=== PATIENT | male | born 1980 | race Caucasian/White ===

== ENCOUNTER 2016-10-07 09:35 | Day surgery (SDC) | payer BC ==
[~2016-10-07] VITALS: Ht 188 cm; Wt 107.2 kg
[2016-10-07 10:13] VITALS: BP 132/81; PULSE 77; TEMP 98.3
[2016-10-07 11:15] VITALS: BP 137/83; PULSE 76; TEMP 97.5
[2016-10-07 11:30] VITALS: BP 151/84; PULSE 84
[2016-10-07 11:45] VITALS: BP 151/92; PULSE 89
== END 2016-10-07 12:10 | disposition home or self-care (01) ==
LOC: SDCO 09:35
DX: J40 Bronchitis, not specified as acute or chronic (principal); R05 Cough; Z87.891 Personal history of nicotine dependence
CPT/HCPCS: J2704

== ENCOUNTER 2017-04-18 10:13 | Day surgery (SDC) | payer BC ==
[~2017-04-18] VITALS: Ht 188 cm; Wt 111.0 kg
[2017-04-18 10:42] VITALS: BP 142/99; PULSE 81
[2017-04-18] MEDS ORDERED: PRIL40 PO (10:45)
[2017-04-18 12:05] VITALS: BP 123/79; PULSE 82
[2017-04-18 12:20] VITALS: BP 128/103; PULSE 91
[2017-04-18] MEDS ORDERED: IMODIUM 2MG CAPS2 MG PO (12:32)
[2017-04-18 12:35] VITALS: BP 141/94; PULSE 77
[2017-04-18 16:21] VITALS: BP 132/77; PULSE 71
== END 2017-04-18 12:45 | disposition home or self-care (01) ==
LOC: SDCO 10:13
DX: K62.1 Rectal polyp (principal); R19.7 Diarrhea, unspecified; K21.9 Gastro-esophageal reflux disease without esophagitis; K30 Functional dyspepsia; E66.9 Obesity, unspecified; Z87.891 Personal history of nicotine dependence
CPT/HCPCS: J2250; J3010; J7030

== ENCOUNTER → 2017-05-01 | Outpatient (CLI) | payer BC ==
[~2017-05-01] MED LIST: IMODIUM 2MG CAPS2 MG PO; PRIL40 PO
== END ==
LOC: COL.RAD 16:20
DX: Z01.89 Encounter for other specified special examinations (principal)

== ENCOUNTER → 2017-05-07 | Outpatient (CLI) | payer BC | LOC: COL.RAD 11:05 | DX: R16.1 Splenomegaly, not elsewhere classified (principal) ==

== ENCOUNTER → 2021-09-10 | Outpatient (CLI) | payer BC | LOC: COL.RAD 14:22 | DX: K76.0 Fatty (change of) liver, not elsewhere classified (principal); J18.1 Lobar pneumonia, unspecified organism; I26.94 Multiple subsegmental thrombotic pulmonary emboli without acute cor pulmonale | CPT/HCPCS: Q9967 ==